=== PATIENT | female | born 2000 | race Caucasian/White ===

== ENCOUNTER 2021-10-16 15:27 | Emergency (ER) | payer OTHER, SELFPAY ==
[2021-10-16 15:33] VITALS: BP 137/78; PULSE 88; RESP 14; TEMP 37.2; O2SAT 100
--- NOTE | 2021-10-16 16:32 | ED.WOUNDLAC ---
HPI - Wound/Laceration General Chief Complaint: Wound/Laceration Stated Complaint: left pointer finger lac Time Seen by Provider: 10/16/21 15:59 Source: patient Mode of arrival: ambulatory Limitations: no limitations History of Present Illness HPI narrative: This is a 21-year-old female that presents to the emergency department for a laceration to the left second finger sustained just prior to arrival. Reports she cut herself with her razor accidentally. Reports bleeding and pain to the area. She is not up-to-date on her tetanus vaccine. Denies decreased range of motion or numbness. Related Data Home Medications Medication Instructions Recorded Confirmed No Home Medications 10/16/21 Allergies Allergy/AdvReac Type Severity Reaction Status Date / Time acetaminophen [From Midol] Allergy Swelling Verified 10/16/21 15:36 of Lip/Tongue/Throat ibuprofen Allergy Swelling Verified 10/16/21 15:36 of Lip/Tongue/Throat pamabrom [From Midol] Allergy Swelling Verified 10/16/21 15:36 of Lip/Tongue/Throat Review of Systems Review of Systems: CONSTITUTIONAL: Denies fever SKIN: Reports laceration All systems reviewed & are unremarkable except as noted in HPI and below PMFSH Past Medical History Medical History (Updated 10/16/21 @ 16:37 by Kiana Musa PA-C) No active medical problems Family History Family History (Updated 05/13/17 @ 15:29 by DOCTOR UNKNOWN) Father No family history of malignant neoplasm No family history of diabetes mellitus Grandparent Family history of lung cancer Social History Social History Smoking status: Never smoker Second hand tobacco smoke exposure: No Alcohol intake: never Exam Narrative: GENERAL: Well-appearing, well-nourished, and in no acute distress. HEAD: Normocephalic, atraumatic. EYES: EOMI. EXTREMITIES: Normal range of motion. No edema. Left second finger palmar surface with 0.5 cm linear superficial laceration SKIN: Warm, dry, no rash. NEURO: No focal deficits. Alert and oriented x3. PSYCH: Normal mood and affect Course Vital Signs Vital signs: Vital Signs Temperature 99.0 F 10/16/21 15:33 Pulse Rate 88 10/16/21 15:33 Respiratory Rate 14 10/16/21 15:33 Blood Pressure 137/78 10/16/21 15:33 Pulse Oximetry 100 10/16/21 15:33 Oxygen Delivery Room Air 10/16/21 15:33 Temperature 99.0 F 10/16/21 15:33 Pulse Rate 88 10/16/21 15:33 Respiratory Rate 14 10/16/21 15:33 Blood Pressure 137/78 10/16/21 15:33 Pulse Oximetry 100 10/16/21 15:33 Oxygen Delivery Room Air 10/16/21 15:33 Procedures Laceration Laceration 1: Date: 10/16/21 Time: 16:35 Site: hand Side (If applicable): left Size (cm): 0.5 Description: linear ====== Skin Level ====== ====== Subcutaneous Layer ====== ====== Muscle Layer ====== ====== Tendon Layer ====== Dressing: Laceration was cleansed and covered with a bandage MDM - Wound/Laceration MDM Narrative Medical decision making narrative: Patient presents to the emergency department for a laceration to the left second finger sustained just prior to arrival. Laceration is superficial. It was irrigated and covered with antibiotic ointment and a bandage. Patient updated on tetanus. She was educated on wound care. She is to follow-up with her primary care doctor. She was given warnings to return to the ER Critical Care Time Critical Care Time Critical Care Time: No Discharge Plan Discharge Clinical Impression: Laceration Patient Disposition: Home, Self-Care Condition: Stable Instructions: Laceration (ED) Additional Instructions: Return to the emergency department if you experience fever, redness or swelling of your wound, abnormal drainage from your wound, or any other symptoms that are concerning to you. Apply antibiotic ointment daily. Do not soak the w
[2021-10-16] MEDS: TETANUS,DIPHTHERIA,AC PERTUSSIS ADULT (0.5 ML) BOOSTRIX IM (16:35)
== END 2021-10-16 16:59 | disposition home or self-care (01) ==
PROVIDERS: Emergency Provider General Practice
DX: S61.211A Laceration without foreign body of left index finger without damage to nail, initial encounter (principal); Z23 Encounter for immunization; W27.8XXA Contact with other nonpowered hand tool, initial encounter
CPT/HCPCS: 90471; 90715; 99282